=== PATIENT | female | born 1940 ===

== ENCOUNTER 2022-09-13 06:00 | Day surgery (SDC) | payer OTHER ==
[~2022-09-13] VITALS: Ht 152.4 cm; Wt 54.4 kg
[~2022-09-13 06:00] MED LIST: CHILDREN'S ASPI81 MG PO; FAMOTIDINE40 MG PO; HUMULIN 70100 UNIT/2 SUBCUTANEO; HYDRALAZINE HC100 MG PO; HYDROCHLOROTHIA25 MG PO; INTEGRA PLUS C1 EACH PO; LEVO-T137 MCG PO; LIPOFEN150 MG PO; NIFEDIPINE ER60 M1 PO; SERTRALINE HCL25 MG PO; SIMVASTATIN40 MG PO; TOPROL XL25 M1 PO; ZYLOPRIM100 M1 PO
[2022-09-13] MEDS ORDERED: OXYC1TAB9 PO (10:16)
== END 2022-09-13 16:35 | disposition home or self-care (01) ==
LOC: CIR.AMB 06:00
PROVIDERS: ATTEND Surgery
DX: D12.9 Benign neoplasm of anus and anal canal (principal); K62.5 Hemorrhage of anus and rectum; K64.4 Residual hemorrhoidal skin tags; K64.8 Other hemorrhoids; Z20.822 Contact with and (suspected) exposure to COVID-19